=== PATIENT | male | born 1985 | race Asian ===

== ENCOUNTER 2016-11-25 19:49 | Emergency (ER) | payer SELFPAY ==
[2016-11-25] MEDS ORDERED: PENICILLIN V POTASSIUM 250 MG TAB As Ordered ONE (20:36)
[2016-11-25] MEDS ORDERED: ACETAMINOPHEN/CODEINE #3 TABLET (BULK) As Ordered ONE (20:37)
--- NOTE | 2016-11-25 21:22 | EDDOCDS ---
Nurse's Notes [facility] Name: Denzel Elizabeth Age: 30 yrs Sex: Male : 1985 Arrival Date: 11/25/2016 Time: 19:49 Bed 13 Private MD: No Pcp Diagnosis: Other specified disorders of teeth and supporting structures Presentation: 11/25 19:53 Presenting complaint: Patient states: toothache for 2 weeks. Adult Sepsis Screening: mcp The patient does not have new or worsening altered mentation. Patient's respiratory rate is less than 22. Systolic blood pressure is greater than 100. Patient has a qSOFA score of 0- Negative Sepsis Screen. Suicide/Homicide risk assessment- the patient denies having any suicidal and/or homicidal ideations and does not present with any other emotional, behavioral or mental health complaints. Status: Patient is not a health services information specialist or dependent. Transition of care: patient was not received from another setting of care. 19:53 Acuity: CASPER Level 5 [facility] 19:53 Method Of Arrival: Walkin/Carried/Asstd [facility] Triage Assessment: 19:55 General: Appears uncomfortable, Behavior is cooperative. Pain: Location: mouth Pain mcp currently is 10 out of 10 on a pain scale. HIV screening NA for this visit Offered previously. Neurological: No deficits noted. EENT: Reports pain in mouth Pain is 10 out of 10 on a pain scale. Respiratory: No deficits noted. Derm: Skin is pink, warm & dry. Historical: - Allergies: Aspirin; - Home Meds: 1. Tylenol Oral as needed (Last dose: 11/25/2016 19:00) - PMHx: none; - PSHx: none; - The history from nurses notes was reviewed: and I agree with what is documented. - Social history: Smoking status: Patient uses tobacco products, light tobacco smoker. Preferred Language: Guinean, Their [place] language is Guinean. - Family history: Not pertinent. - : The pt / caregiver states he / she is not on anticoagulants. Home medication list is obtained from the patient. - Hospitalizations: : No recent hospitalization is reported. - Exposure Risk Screening:: None identified. - Immunization history:: Last tetanus immunization: up to date. Screenin:10 Screening information is obtained from the patient. Fall risk: No risks identified. rs3 Assistance ADL's: requires no assistance with activities of daily living. Abuse/DV Screen: The patient / caregiver reports he/she is: not in a situation that causes fear, pain or injury. Nutritional screening: No deficits noted. Advance Directives: Currently, there is no health care proxy. home support is adequate. Assessment: 21:09 General: Appears in no apparent distress, Behavior is appropriate for age, cooperative. rs3 Pain: Location: mouth. EENT: Poor dentition noted. Dental caries noted in lower left third molar (#17), lower left second molar (#18) and lower left first molar (#19). Respiratory: Airway is patent Respiratory effort is even, unlabored, Respiratory pattern is regular, symmetrical. Vital Signs: 19:52 BP 126 / 77; Pulse 84; Resp 16; Temp 96.1(T); Pulse Ox 99% on R/A; Weight 58.97 kg; sew Height 5 ft. 2 in. (157.48 cm); Pain 10/10; 21:10 BP 124 / 78; Pulse 77; Resp 18; Temp 97.0(O); Pulse Ox 98% on R/A; Pain 8/10; kb5 19:52 Body Mass Index 23.78 (58.97 kg, 157.48 cm) [facility] Vitals: 19:52 Log In Time: November 25, 2016 at 19:47. [facility] ED Course: 19:50 Patient visited by Wen Zimmerman. sew 19:50 Patient moved to Waiting sew 19:52 No Pcp is Private Physician. sew 19:52 Patient visited by Wen Zimmerman. sew 19:54 Patient moved to Pre RCE sew 19:54 Triage Initiated mcp 19:56 Patient visited by Alena Kimble RN. mcp 20:21 Dov Burris MD is Attending Physician. pc 20:21 Marilynn Delaney,AUSTYN is Primary Nurse. pc 20:21 Patient moved to 13 pc 20:26 Patient visited by Dov Burris MD. pc 20:33 Your, Dentist is Referral Physician. pc 20:49 [facility] Payment Agreement was scanned into [employer] and attached to record. jp5 20:53 Patient name changed from Echvarria\S\\S\Glenn\S\ to Echvarria\S\ \S\Glenn. EDMS 21:02 Patient visited by Pavan Jennings PCA. kb5 21:10 Patient visited by Pavan Jennings PCA. kb5 21:20 The patient / caregiver is instructed regarding the plan of care and ED course. rs3 21:20 No IV's were initiated during this patient's visit. No procedures done that require rs3 assistance. Administered Medications: 20:48 Drug: Acetaminophen-Codeine, 4 pack- 1 packets [acetaminophen 300 mg-codeine 30 mg rs3 tablet (1 tabs)] {Co-Signature: [email or web address] (Reema Wasserman RN).} Route: PO; 20:49 Drug: Penicillin VK 500 mg [penicillin V potassium 250 mg tablet (2 tabs)] Route: PO; rs3 Order Results: There are currently no results for this order. Outcome: 20:34 Discharge ordered by Provider. pc 21:20 Discharge Assessment: patient administered narcotics - no. The following High Risk rs3 Discharge criteria are identified: None. Discharged to home with friend. Condition: stable. Discharge instructions given to patient, Instructed on discharge instructions, follow up and referral plans. medication usage, Demonstrated understanding of instructions, medications, Pt was receptive of discharge instructions/ teaching. Prescriptions given X 2. No special radiology studies were completed. Property :Personal belongings accompany Pt. 21:21 Patient left the ED. rs3 Signatures: Dispatcher [employer] EDMS Dov Burris MD MD pc Peters, Mary RN AUSTYN [facility] Pavan Jennings PCA HOST/HOSTESS GROUND kb5 Marilynn Delaney RN RN rs3 Wen Zimmerman [facility] Reema ramos MTDD
--- NOTE | 2016-11-25 21:22 | EDDOCDS ---
Physician Documentation [facility] Name: Denzel Elizabeth Age: 30 yrs Sex: Male : 1985 Arrival Date: 11/25/2016 Time: 19:49 Bed 13 Private MD: No Pcp Disposition: 11/25 20:31 Critical Care: Critical care not applicable. pc Disposition: 11/25/16 20:34 Discharged to Home/Self Care. Impression: Other specified disorders of teeth and supporting structures. - Condition is Stable. - Discharge Instructions: Dental Pain. - Prescriptions for penicillin V potassium 500 mg Oral Tablet - take 1 tablet by ORAL route 4 times per day for 10 days; 40 tablet. Tylenol- Codeine #3 300-30 mg Oral Tablet - take 2 tablet by ORAL route every 6 hours As needed MDD: 4 tabs; 30 tablet. - Medication Reconciliation, Local Pharmacy Hours form. - Follow up: Your, Dentist; When: Call to arrange an appointment; Reason: To establish care. - Problem is new. - Symptoms are unchanged. HPI: 20:29 This 30 yrs old Male presents to ER via Walkin/Carried/Asstd with complaints of pc Toothache. 20:29 The history is obtained from the patient. A reliable history and/or examination was not pc able to be obtained, due to friend is translating. Patient does not speak Pakistani. He has had left lower dental pain for a week. No fevers or chills. No facial swelling. No trauma history. At their worst, the symptoms were moderate. In the emergency department, the symptoms are unchanged. The patient has not experienced similar symptoms in the past. The patient has not recently seen a physician. Historical: - Allergies: Aspirin; - Home Meds: 1. Tylenol Oral as needed (Last dose: 11/25/2016 19:00) - PMHx: none; - PSHx: none; - The history from nurses notes was reviewed: and I agree with what is documented. - Social history: Smoking status: Patient uses tobacco products, light tobacco smoker. Preferred Language: Hungarian, Their [place] language is Hungarian. - Family history: Not pertinent. - : The pt / caregiver states he / she is not on anticoagulants. Home medication list is obtained from the patient. - Hospitalizations: : No recent hospitalization is reported. - Exposure Risk Screening:: None identified. - Immunization history:: Last tetanus immunization: up to date. ROS: 20:29 All systems are negative except as listed. pc Exam: 20:29 General Appearance: no acute distress, alert. pc 20:29 EENT: left lower molars with gingival erythema, no abscess or discharge noted, no obvious caries or fractures . 20:29 Neck: The exam reveals no acute abnormalities. ROM is normal and painless. No nuchal rigidity is noted.. Vital Signs: 19:52 BP 126 / 77; Pulse 84; Resp 16; Temp 96.1(T); Pulse Ox 99% on R/A; Weight 58.97 kg / sew 130.01 lbs; Height 5 ft. 2 in. (157.48 cm); Pain 10/10; 21:10 BP 124 / 78; Pulse 77; Resp 18; Temp 97.0(O); Pulse Ox 98% on R/A; Pain 8/10; kb5 19:52 Body Mass Index 23.78 (58.97 kg, 157.48 cm) sew MDM: 20:28 Penicillin VK 500 mg PO once ordered. pc 20:28 Acetaminophen-Codeine, 4 pack- 300 mg-30 mg 1 packets PO once; Dispense with patient. pc Take per package instructions. ordered. 20:29 Data reviewed: The patient's [facility] records were accessed, reference # [id number]. pc 20:31 Differential Diagnosis: dental pain. Plan: meds, advice. Test interpretation: none. The pc patient has been re-examined and re-evaluated. There is no appreciated change of the patient's symptoms at this time. Disposition: The historical points, examination findings, and any diagnostic results supporting the provided diagnosis, were discussed with the patient or legal guardian. The need for outpatient follow up with the provider listed on their discharge instructions was discussed. They were encouraged to return to [facility], or the nearest ED, if symptoms worsen/persist, or for any other questions/concerns. 20:49 [facility] Payment Agreement was scanned into [employer] and attached to record. 5 20:49 Financial registration complete. jp5 Administered Medications: 20:48 Drug: Acetaminophen-Codeine, 4 pack- 1 packets [acetaminophen 300 mg-codeine 30 mg rs3 tablet (1 tabs)] {Co-Signature: [email or web address] (Reema Wasserman RN).} Route: PO; 20:49 Drug: Penicillin VK 500 mg [penicillin V potassium 250 mg tablet (2 tabs)] Route: PO; rs3 Signatures: Dov Burris MD MD pc Peters, Mary, RN RN mcp Soosairaj, Rosemary, RN RN rs3 Bernardo Hughes jp5 Reema Wasserman RN jo3 The chart was reviewed and I authenticate all verbal orders and agree with the evaluation and treatment provided.Attachments: 20:49 [facility] Payment Agreement jp5 MTDD
--- NOTE | 2016-11-29 09:57 | EDDOCDS ---
Nurse's Notes [facility] Name: Denzel Elizabeth Age: 30 yrs Sex: Male : 1985 Arrival Date: 11/25/2016 Time: 19:49 Bed 13 Private MD: No Pcp Diagnosis: Other specified disorders of teeth and supporting structures Presentation: 11/25 19:53 Presenting complaint: Patient states: toothache for 2 weeks. Adult Sepsis Screening: mcp The patient does not have new or worsening altered mentation. Patient's respiratory rate is less than 22. Systolic blood pressure is greater than 100. Patient has a qSOFA score of 0- Negative Sepsis Screen. Suicide/Homicide risk assessment- the patient denies having any suicidal and/or homicidal ideations and does not present with any other emotional, behavioral or mental health complaints. Status: Patient is not a fire services plumber or dependent. Transition of care: patient was not received from another setting of care. 19:53 Acuity: CASPER Level 5 [facility] 19:53 Method Of Arrival: Walkin/Carried/Asstd [facility] Triage Assessment: 19:55 General: Appears uncomfortable, Behavior is cooperative. Pain: Location: mouth Pain mcp currently is 10 out of 10 on a pain scale. HIV screening NA for this visit Offered previously. Neurological: No deficits noted. EENT: Reports pain in mouth Pain is 10 out of 10 on a pain scale. Respiratory: No deficits noted. Derm: Skin is pink, warm & dry. Historical: - Allergies: Aspirin; - Home Meds: 1. Tylenol Oral as needed (Last dose: 11/25/2016 19:00) - PMHx: none; - PSHx: none; - The history from nurses notes was reviewed: and I agree with what is documented. - Social history: Smoking status: Patient uses tobacco products, light tobacco smoker. Preferred Language: Peruvian, Their [place] language is Peruvian. - Family history: Not pertinent. - : The pt / caregiver states he / she is not on anticoagulants. Home medication list is obtained from the patient. - Hospitalizations: : No recent hospitalization is reported. - Exposure Risk Screening:: None identified. - Immunization history:: Last tetanus immunization: up to date. Screenin:10 Screening information is obtained from the patient. Fall risk: No risks identified. rs3 Assistance ADL's: requires no assistance with activities of daily living. Abuse/DV Screen: The patient / caregiver reports he/she is: not in a situation that causes fear, pain or injury. Nutritional screening: No deficits noted. Advance Directives: Currently, there is no health care proxy. home support is adequate. Assessment: 21:09 General: Appears in no apparent distress, Behavior is appropriate for age, cooperative. rs3 Pain: Location: mouth. EENT: Poor dentition noted. Dental caries noted in lower left third molar (#17), lower left second molar (#18) and lower left first molar (#19). Respiratory: Airway is patent Respiratory effort is even, unlabored, Respiratory pattern is regular, symmetrical. Vital Signs: 19:52 BP 126 / 77; Pulse 84; Resp 16; Temp 96.1(T); Pulse Ox 99% on R/A; Weight 58.97 kg; sew Height 5 ft. 2 in. (157.48 cm); Pain 10/10; 21:10 BP 124 / 78; Pulse 77; Resp 18; Temp 97.0(O); Pulse Ox 98% on R/A; Pain 8/10; kb5 19:52 Body Mass Index 23.78 (58.97 kg, 157.48 cm) [facility] Vitals: 19:52 Log In Time: November 25, 2016 at 19:47. [facility] ED Course: 19:50 Patient visited by Wen Zimmerman. sew 19:50 Patient moved to Waiting sew 19:52 No Pcp is Private Physician. sew 19:52 Patient visited by Wen Zimmerman. sew 19:54 Patient moved to Pre RCE sew 19:54 Triage Initiated mcp 19:56 Patient visited by Alena Kimble RN. mcp 20:21 Dov Burris MD is Attending Physician. pc 20:21 Marilynn Delaney,AUSTYN is Primary Nurse. pc 20:21 Patient moved to 13 pc 20:26 Patient visited by Dov Burris MD. pc 20:33 Your, Dentist is Referral Physician. pc 20:49 [facility] Payment Agreement was scanned into [employer] and attached to record. jp5 20:53 Patient name changed from Echvarria\S\\S\Glenn\S\ to Echvarria\S\ \S\Glenn. EDMS 21:02 Patient visited by Pavan Jennings PCA. kb5 21:10 Patient visited by Pavan Jennings PCA. kb5 21:20 The patient / caregiver is instructed regarding the plan of care and ED course. rs3 21:20 No IV's were initiated during this patient's visit. No procedures done that require rs3 assistance. Administered Medications: 20:48 Drug: Acetaminophen-Codeine, 4 pack- 1 packets [acetaminophen 300 mg-codeine 30 mg rs3 tablet (1 tabs)] {Co-Signature: [email or web address] (Reema Wasserman RN).} Route: PO; 20:49 Drug: Penicillin VK 500 mg [penicillin V potassium 250 mg tablet (2 tabs)] Route: PO; rs3 Order Results: There are currently no results for this order. Outcome: 20:34 Discharge ordered by Provider. pc 21:20 Discharge Assessment: patient administered narcotics - no. The following High Risk rs3 Discharge criteria are identified: None. Discharged to home with friend. Condition: stable. Discharge instructions given to patient, Instructed on discharge instructions, follow up and referral plans. medication usage, Demonstrated understanding of instructions, medications, Pt was receptive of discharge instructions/ teaching. Prescriptions given X 2. No special radiology studies were completed. Property :Personal belongings accompany Pt. 21:21 Patient left the ED. rs3 Signatures: Dispatcher [employer] EDMS Dov Burris MD MD pc Peters, Mary RN AUSTYN [facility] Pavan Jennings, MICK WATER PLUMBER kb5 Marilynn Delaney RN RN rs3 Wen Zimmerman Jennalee [facility] Reema ramos Chart Complete [facility]
--- NOTE | 2016-11-29 09:57 | EDDOCDS ---
Physician Documentation [facility] Name: Denzel Elizabeth Age: 30 yrs Sex: Male : 1985 Arrival Date: 11/25/2016 Time: 19:49 Bed 13 Private MD: No Pcp Disposition: 11/25 20:31 Critical Care: Critical care not applicable. pc Disposition: 11/25/16 20:34 Discharged to Home/Self Care. Impression: Other specified disorders of teeth and supporting structures. - Condition is Stable. - Discharge Instructions: Dental Pain. - Prescriptions for penicillin V potassium 500 mg Oral Tablet - take 1 tablet by ORAL route 4 times per day for 10 days; 40 tablet. Tylenol- Codeine #3 300-30 mg Oral Tablet - take 2 tablet by ORAL route every 6 hours As needed MDD: 4 tabs; 30 tablet. - Medication Reconciliation, Local Pharmacy Hours form. - Follow up: Your, Dentist; When: Call to arrange an appointment; Reason: To establish care. - Problem is new. - Symptoms are unchanged. HPI: 20:29 This 30 yrs old Male presents to ER via Walkin/Carried/Asstd with complaints of pc Toothache. 20:29 The history is obtained from the patient. A reliable history and/or examination was not pc able to be obtained, due to friend is translating. Patient does not speak Romanian. He has had left lower dental pain for a week. No fevers or chills. No facial swelling. No trauma history. At their worst, the symptoms were moderate. In the emergency department, the symptoms are unchanged. The patient has not experienced similar symptoms in the past. The patient has not recently seen a physician. Historical: - Allergies: Aspirin; - Home Meds: 1. Tylenol Oral as needed (Last dose: 11/25/2016 19:00) - PMHx: none; - PSHx: none; - The history from nurses notes was reviewed: and I agree with what is documented. - Social history: Smoking status: Patient uses tobacco products, light tobacco smoker. Preferred Language: Kyrgyz, Their [place] language is Kyrgyz. - Family history: Not pertinent. - : The pt / caregiver states he / she is not on anticoagulants. Home medication list is obtained from the patient. - Hospitalizations: : No recent hospitalization is reported. - Exposure Risk Screening:: None identified. - Immunization history:: Last tetanus immunization: up to date. ROS: 20:29 All systems are negative except as listed. pc Exam: 20:29 General Appearance: no acute distress, alert. pc 20:29 EENT: left lower molars with gingival erythema, no abscess or discharge noted, no obvious caries or fractures . 20:29 Neck: The exam reveals no acute abnormalities. ROM is normal and painless. No nuchal rigidity is noted.. Vital Signs: 19:52 BP 126 / 77; Pulse 84; Resp 16; Temp 96.1(T); Pulse Ox 99% on R/A; Weight 58.97 kg / sew 130.01 lbs; Height 5 ft. 2 in. (157.48 cm); Pain 10/10; 21:10 BP 124 / 78; Pulse 77; Resp 18; Temp 97.0(O); Pulse Ox 98% on R/A; Pain 8/10; kb5 19:52 Body Mass Index 23.78 (58.97 kg, 157.48 cm) sew MDM: 20:28 Penicillin VK 500 mg PO once ordered. pc 20:28 Acetaminophen-Codeine, 4 pack- 300 mg-30 mg 1 packets PO once; Dispense with patient. pc Take per package instructions. ordered. 20:29 Data reviewed: The patient's [facility] records were accessed, reference # [id number]. pc 20:31 Differential Diagnosis: dental pain. Plan: meds, advice. Test interpretation: none. The pc patient has been re-examined and re-evaluated. There is no appreciated change of the patient's symptoms at this time. Disposition: The historical points, examination findings, and any diagnostic results supporting the provided diagnosis, were discussed with the patient or legal guardian. The need for outpatient follow up with the provider listed on their discharge instructions was discussed. They were encouraged to return to [facility], or the nearest ED, if symptoms worsen/persist, or for any other questions/concerns. 20:49 [facility] Payment Agreement was scanned into [email or web address] and attached to record. 5 20:49 Financial registration complete. jp5 Administered Medications: 20:48 Drug: Acetaminophen-Codeine, 4 pack- 1 packets [acetaminophen 300 mg-codeine 30 mg rs3 tablet (1 tabs)] {Co-Signature: [email or web address] (Reema Wasserman RN).} Route: PO; 20:49 Drug: Penicillin VK 500 mg [penicillin V potassium 250 mg tablet (2 tabs)] Route: PO; rs3 Signatures: Dov Burris MD MD pc Peters, Mary, RN RN mcp Soosairaj, Rosemary, RN RN rs3 Bernardo Hughes jp5 Reema Wasserman RN jo3 The chart was reviewed and I authenticate all verbal orders and agree with the evaluation and treatment provided.Attachments: 20:49 [facility] Payment Agreement jp5 Chart Complete MTDD
--- NOTE | 2016-11-29 09:57 | EDDOCDS ---
Physician Documentation [facility] Name: Denzel Elizabeth Age: 30 yrs Sex: Male : 1985 Arrival Date: 11/25/2016 Time: 19:49 Bed 13 Private MD: No Pcp Disposition: 11/25 20:31 Critical Care: Critical care not applicable. pc Disposition: 11/25/16 20:34 Discharged to Home/Self Care. Impression: Other specified disorders of teeth and supporting structures. - Condition is Stable. - Discharge Instructions: Dental Pain. - Prescriptions for penicillin V potassium 500 mg Oral Tablet - take 1 tablet by ORAL route 4 times per day for 10 days; 40 tablet. Tylenol- Codeine #3 300-30 mg Oral Tablet - take 2 tablet by ORAL route every 6 hours As needed MDD: 4 tabs; 30 tablet. - Medication Reconciliation, Local Pharmacy Hours form. - Follow up: Your, Dentist; When: Call to arrange an appointment; Reason: To establish care. - Problem is new. - Symptoms are unchanged. HPI: 20:29 This 30 yrs old Male presents to ER via Walkin/Carried/Asstd with complaints of pc Toothache. 20:29 The history is obtained from the patient. A reliable history and/or examination was not pc able to be obtained, due to friend is translating. Patient does not speak [place]. He has had left lower dental pain for a week. No fevers or chills. No facial swelling. No trauma history. At their worst, the symptoms were moderate. In the emergency department, the symptoms are unchanged. The patient has not experienced similar symptoms in the past. The patient has not recently seen a physician. Historical: - Allergies: Aspirin; - Home Meds: 1. Tylenol Oral as needed (Last dose: 11/25/2016 19:00) - PMHx: none; - PSHx: none; - The history from nurses notes was reviewed: and I agree with what is documented. - Social history: Smoking status: Patient uses tobacco products, light tobacco smoker. Preferred Language: Bulgarian, Their [place] language is [place]ian. - Family history: Not pertinent. - : The pt / caregiver states he / she is not on anticoagulants. Home medication list is obtained from the patient. - Hospitalizations: : No recent hospitalization is reported. - Exposure Risk Screening:: None identified. - Immunization history:: Last tetanus immunization: up to date. ROS: 20:29 All systems are negative except as listed. pc Exam: 20:29 General Appearance: no acute distress, alert. pc 20:29 EENT: left lower molars with gingival erythema, no abscess or discharge noted, no obvious caries or fractures . 20:29 Neck: The exam reveals no acute abnormalities. ROM is normal and painless. No nuchal rigidity is noted.. Vital Signs: 19:52 BP 126 / 77; Pulse 84; Resp 16; Temp 96.1(T); Pulse Ox 99% on R/A; Weight 58.97 kg / sew 130.01 lbs; Height 5 ft. 2 in. (157.48 cm); Pain 10/10; 21:10 BP 124 / 78; Pulse 77; Resp 18; Temp 97.0(O); Pulse Ox 98% on R/A; Pain 8/10; kb5 19:52 Body Mass Index 23.78 (58.97 kg, 157.48 cm) sew MDM: 20:28 Penicillin VK 500 mg PO once ordered. pc 20:28 Acetaminophen-Codeine, 4 pack- 300 mg-30 mg 1 packets PO once; Dispense with patient. pc Take per package instructions. ordered. 20:29 Data reviewed: The patient's [facility] records were accessed, reference # [id number]. pc 20:31 Differential Diagnosis: dental pain. Plan: meds, advice. Test interpretation: none. The pc patient has been re-examined and re-evaluated. There is no appreciated change of the patient's symptoms at this time. Disposition: The historical points, examination findings, and any diagnostic results supporting the provided diagnosis, were discussed with the patient or legal guardian. The need for outpatient follow up with the provider listed on their discharge instructions was discussed. They were encouraged to return to [facility], or the nearest ED, if symptoms worsen/persist, or for any other questions/concerns. 20:49 [facility] Payment Agreement was scanned into [employer] and attached to record. 5 20:49 Financial registration complete. [email or web address] Administered Medications: 20:48 Drug: Acetaminophen-Codeine, 4 pack- 1 packets [acetaminophen 300 mg-codeine 30 mg rs3 tablet (1 tabs)] {Co-Signature: [email or web address] (Reema Wsaserman RN).} Route: PO; 20:49 Drug: Penicillin VK 500 mg [penicillin V potassium 250 mg tablet (2 tabs)] Route: PO; rs3 Signatures: Dov Burris MD MD pc Peters, Mary, RN RN mcp Soosairaj, Rosemary, RN RN rs3 Bernardo Hughes jp5 Reema Wasserman RN jo3 The chart was reviewed and I authenticate all verbal orders and agree with the evaluation and treatment provided.Attachments: 20:49 [facility] Payment Agreement jp5 Chart Complete MTDD
== END 2016-11-25 21:21 | disposition home or self-care (01) ==
LOC: M ED 19:49
DX: K08.89 Other specified disorders of teeth and supporting structures (principal); Z72.0 Tobacco use; Z88.6 Allergy status to analgesic agent